=== PATIENT | female | born 1950 | race Caucasian/White ===

== ENCOUNTER 2017-10-16 11:27 | Emergency (ER) | payer MEDICARE, MEDICAID ==
[2017-10-16 11:37] VITALS: BMI 36.7
[2017-10-16 11:38] VITALS: BP 145/87; PULSE 85; RESP 16; TEMP 98.5; O2SAT 97
--- NOTE | 2017-10-16 12:38 | C.PDOC ---
History Of Present Illness 66 year old female presents to ED with complaints of itching to her right chest wall, area of port-a-cath site, since yesterday. She states she had it placed 9 days ago. She has not changed dressing and complains only of itching and wants dressing changed. Denies any fever, redness, swelling, pain. Time Seen by Provider: 10/16/17 12:17 Chief Complaint (Nursing): Wound Check History Per: Patient History/Exam Limitations: no limitations Onset/Duration Of Symptoms: Days Ago Current Symptoms Are (Timing): Still Present Severity: Moderate Past Medical History Reviewed: Historical Data, Nursing Documentation, Vital Signs Vital Signs: Last Vital Signs Temp 98.5 F 10/16/17 11:37 Pulse 85 10/16/17 11:37 Resp 16 10/16/17 11:37 BP 145/87 10/16/17 11:37 Pulse Ox 97 10/16/17 16:42 - Medical History PMH: HTN, Hypercholesterolemia Surgical History: No Surg Hx Family History: States: No Known Family Hx - Social History Hx Alcohol Use: No Hx Substance Use: No - Immunization History Hx Tetanus Toxoid Vaccination: No Hx Influenza Vaccination: No Hx Pneumococcal Vaccination: No Review Of Systems Except As Marked, All Systems Reviewed And Found Negative. Constitutional: Negative for: Fever, Chills Skin: Positive for: Other (itching on right chest wall). Negative for: Rash Physical Exam - Physical Exam Appears: Non-toxic, No Acute Distress Skin: Normal Color, Warm, Other (linear wound to right upper chest wall at portacath site, no erythema, no swelling, mininmal tenderness, no drainage, no odor) Head: Atraumatic, Normacephalic Eye(s): bilateral: Normal Inspection, EOMI Nose: Normal Oral Mucosa: Moist Neck: Supple Chest: Symmetrical, Other (see skin) Cardiovascular: Rhythm Regular, No Murmur Respiratory: Normal Breath Sounds, No Wheezing Extremity: Normal ROM, No Deformity, No Swelling Neurological/Psych: Oriented x3, Normal Speech Gait: Steady ED Course And Treatment O2 Sat by Pulse Oximetry: 97 (RA) Pulse Ox Interpretation: Normal Medical Decision Making Medical Decision Making: Patient with complaints of itching at portacath site and requesting dressing change. Old dressings removed, and wound appears well healing and no signs of cellulitis, abcess or other concern. Area cleansed with NS. New sterile dressings applied. Patient instructed to follow up with her PCP/surgeon Disposition Counseled Patient/Family Regarding: Diagnosis, Need For Followup - Disposition Referrals: Kaylen Romero MD [Staff Provider] - Disposition: HOME/ ROUTINE Disposition Time: 12:38 Condition: GOOD Additional Instructions: Please follow up with your primary doctor or surgeon for further evaluation. Instructions: Acute Wound Care (ED) Forms: [employer] (Eritrean) - POA Present On Arrival: None - Clinical Impression Clinical Impression: Change of dressing, Visit for wound check - PA / VP CLINICAL RESEARCH / Resident Statement MD/DO has reviewed & agrees with the documentation as recorded. - Scribe Statement The provider has reviewed the documentation as recorded by the Olga Fatima Provider Attestation All medical record entries made by the Bridgettibyuri were at my direction and personally dictated by me. I have reviewed the chart and agree that the record accurately reflects my personal performance of the history, physical exam, medical decision making, and the department course for this patient. I have also personally directed, reviewed, and agree with the discharge instructions and disposition.
== END 2017-10-16 12:44 | disposition home or self-care (01) ==
LOC: C.ER 11:27
DX: Z51.89 Encounter for other specified aftercare (principal); Z48.00 Encounter for change or removal of nonsurgical wound dressing; E78.00 Pure hypercholesterolemia, unspecified; I10 Essential (primary) hypertension